=== PATIENT | male | born 1960 | race Caucasian/White ===

== ENCOUNTER 2018-07-11 10:29 | Emergency (ER) | payer BC ==
[~2018-07-11] VITALS: Ht 185.4 cm; Wt 90.9 kg
[2018-07-11 10:35] VITALS: Ht 185.4 cm; Wt 90.9 kg
[2018-07-11] MEDS ORDERED: TORADOL10 MG PO (12:21)
[2018-07-11 12:53] VITALS: BP 136/84
== END 2018-07-11 12:57 | disposition home or self-care (01) ==
LOC: D.ER 10:29
DX: S92.402A Displaced unspecified fracture of left great toe, initial encounter for closed fracture (principal); V29.9XXA Motorcycle rider (driver) (passenger) injured in unspecified traffic accident, initial encounter; Y93.89 Activity, other specified; Y92.410 Unspecified street and highway as the place of occurrence of the external cause; S61.411A Laceration without foreign body of right hand, initial encounter; S89.91XA Unspecified injury of right lower leg, initial encounter

== ENCOUNTER → 2018-07-23 08:42 | Outpatient (CLI) | payer BC ==
[2018-07-11 10:35] VITALS: BMI 26.4
[~2018-07-23 08:42] MED LIST: TORADOL10 MG PO
== END | disposition home or self-care (01) ==
LOC: D.MRI 08:42
DX: M25.561 Pain in right knee (principal)